=== PATIENT | male | born 1940 | race African-American/Black ===

== ENCOUNTER 2017-10-24 07:39 | Day surgery (SDC) | payer BC, MEDICARE ==
[2017-10-20 10:17] VITALS: BMI 33.0
[2017-10-24] MEDS ORDERED: PROPOFOL 20 ML ONE ×2 (07:48)
[2017-10-24] MEDS ORDERED: LIDOCAINE HCL/PF 2% SDV 5ML VIAL ONE (07:51)
[2017-10-24 08:03] VITALS: TEMP 97.4
[2017-10-24 09:17] VITALS: BP 128/72; PULSE 81
== END 2017-10-24 09:20 | disposition home or self-care (01) ==
LOC: FASU-ENDO 07:39
PROVIDERS: ATTEND Internal Medicine Gastroenterology
PROC: 0DJD8ZZ Inspection of Lower Intestinal Tract, Via Natural or Artificial Opening Endoscopic (ICD-10-PCS; principal; 2017-10-24 08:28)
DX: Z86.010 Personal history of colon polyps (principal)
CPT/HCPCS: 82962